=== PATIENT | female | born 1960 | race Caucasian/White ===

== ENCOUNTER 2020-07-08 12:03 | Inpatient (IN) | payer BC ==
[~2020-07-08] VITALS: Ht 170.2 cm; Wt 119.5 kg
[2020-07-08 12:52] LABS: BILIRUBIN,URINE NEGATIVE (NEG); CLARITY,URINE CLEAR; COLOR,URINE YELLOW; NITRITE,URINE NEGATIVE (NEG); PROTEIN,URINE NEGATIVE (NEG-TRACE); UROBILINOGEN,URINE 0.2 mg/dL (0.2 mg/dL)
[2020-07-08 13:01] LABS: HYALINE CASTS, URINE MANY /HPF
[2020-07-08 13:02] LABS: BACTERIA,URINE FEW /HPF (0-FEW); RBC,URINE OCC /HPF (0-2); WBC,URINE OCC /HPF (0-4)
[2020-07-08 13:03] LABS: AMORPHOUS SEDIMENT,UR PRESENT /HPF
[2020-07-08] MEDS ORDERED: fentaNYL PF VIAL 100 MCG/2 ML VIAL IV ONE (13:15)
[2020-07-08] MEDS ORDERED: IV NORMAL SALINE 1000ML BAG 1,000 ML IV ONE (13:15)
[2020-07-08] MEDS ORDERED: ONDANSETRON PF 4 MG/2 ML VIAL. IV ONE (13:15)
[2020-07-08 13:35] LABS: BASO % 0 % (0-3); EOS % 1 % (0-3); HEMATOCRIT 32.2 % (36.0-47.0); HEMOGLOBIN 11.1 g/dL (12.0-15.5); LYMPH % 15 % (24-48); MEAN CORPUSCULAR HEMOGLOBIN 31 pg (25-35); MEAN CORPUSCULAR HGB CONC 34 g/dL (31-37); MEAN CORPUSCULAR VOLUME 89 fL (79-100); MONO # 0.5 x10^3/uL (0.0-1.1); MONO % 7 % (0-9); NEUT # 5.1 x10^3/uL (1.8-7.7); NEUT % 77 % (31-73); PLATELET COUNT 177 x10^3/uL (140-400); RED BLOOD COUNT 3.62 x10^6/uL (3.50-5.40); WHITE BLOOD COUNT 6.6 x10^3/uL (4.0-11.0)
[2020-07-08 13:44] LABS: CALCIUM 9.8 mg/dL (8.5-10.1); CREATININE 1.1 mg/dL (0.6-1.0); GFR 50.5; POTASSIUM 4.4 mmol/L (3.5-5.1)
[2020-07-08] MEDS ORDERED: IOHEXOL 300 MG/ML 100ML VIAL. IV ONE (13:45)
[2020-07-08] MEDS ORDERED: CONTRAST GIVEN. MC PRN (13:45)
[2020-07-08 13:50] LABS: ALBUMIN 3.3 g/dL (3.4-5.0); ALBUMIN/GLOBULIN RATIO 0.9 (1.0-1.7); MAGNESIUM 1.5 mg/dL (1.8-2.4); TOTAL BILIRUBIN 0.7 mg/dL (0.2-1.0); TOTAL PROTEIN 6.9 g/dL (6.4-8.2)
--- NOTE | 2020-07-08 15:00 | RAD ---
EXAM: Abdomen and pelvis CT with intravenous contrast. HISTORY: Pain. TECHNIQUE: Computed tomographic images of the abdomen and pelvis were obtained following the administ ration of intravenous contrast. Multiplanar reformatting was performed. *One or more of the following individualized dose reduction techniques were utilized for this examina tion: 1. Automated exposure control. 2. Adjustment of the mA and/or kV according to patient size. 3. Use of iterative reconstruction technique. COMPARISON: None. FINDINGS: Evaluation of the lower thorax demonstrates no infiltrate, pleural effusion or pneumothorax . There is focal lingular atelectasis or scarring. No suspicious hepatic lesion is seen. There is mil d biliary ductal dilatation likely due to reservoir effect status post cholecystomy. The pancreas is unremarkable. There is a splenule adjacent to an otherwise unremarkable spleen. The adrenal glands ar e unremarkable. There is no hydronephrosis or suspicious renal lesion. There is no appendicitis. There is no bowel obstruction. There is no abnormal bowel wall thickening. The bladder is nearly empty. There are calcifications within the lower uterine segment likely due to small fibroids. There are also a few small uterine parenchyma calcifications. The aorta is normal in caliber. There is no lymphadenopathy. There is degenerative change throughout the spine. There is a heavily calcified lesion within the left lateral recess at T10-T11, likely due to a disc protrusion with slight superior extrusion. There is a similar smaller left lateral recess t o foraminal disc protrusion/extrusion at T11-T12 and there are multiple lumbar disc protrusions and a ssociated foraminal and central canal stenosis. IMPRESSION: 1. No convincing acute abdominal or pelvic finding. 2. Biliary ductal dilatation likely due to reservoir effect status post cystectomy. 3. Small calcified uterine fibroids. 4. Degenerative change involving the thoracic and lumbar spine, resulting in stenosis at multiple lev els. Electronically signed by: Debi Gibson MD (07/08/2020 2:58 PM) [facility]
[2020-07-08] MEDS ORDERED: MAGNESIUM OXIDE 400 MG TABLET PO ONE (15:30)
--- NOTE | 2020-07-08 15:39 | ED.ADGEN ---
Past Medical History Past Medical History: Constipation, GERD, Hypertension, P.U.D. Past Surgical History: , Hysterectomy, Other Additional Past Surgical Histo: KNEE Smoking Status: Former Smoker Alcohol Use: None General Adult EDM: Chief Complaint: ABDOMINAL PAIN HPI: HPI: Patient is a 60 year old female, accompanied by her , who presents emergency department with complaints of intractable upper abdominal pain that has progressively gotten worse over the last month. Patient states she has been taking Protonix that was prescribed by her primary care doctor with no improveme nt of her symptoms. Patient states her nausea is actually gotten worse. Patient states she has not been able to eat for the last 3 days or return she tries to eat she vomits and has dry heaves. Patient states that the pain is mostly in her upper abdomen but does radiate to her entire abdomen. She denies any chest pain, palpitations, dizziness, shortness of breath, wheezing, diarrhea, dysuria, hematuria, increased urinary frequency, difficulty voiding, back pain, cough, or fever. Patient states she is supposed to have a EGD on the of this month but she feels like she cannot wait any longer. Patient initially had a EGD at the end of May but was unable to attend the appointment due to receiving her second Covid immunization and having a fever the next day. She currently rates pain 10 out of 10 on the pain scale, she denies any alleviating factors. She states that the pain is constant. Review of Systems: Review of Systems: Complete ROS is negative unless otherwise noted in HPI. Current Medications: Current Medications Medications (Trade) Dose Ordered Sig/Gary Start Time Stop Time Status Last Admin Dose Admin Fentanyl Citrate (Fentanyl 2ml Vial) 50 mcg 1X ONCE 07/08/20 13:15 07/08/20 13:16 DC 07/08/20 13:33 50 MCG Info (CONTRAST GIVEN -- Rx MONITORING) 1 each PRN DAILY PRN 07/08/20 13:45 07/10/20 13:44 DC Iohexol (Omnipaque 300 Mg/ml) 75 ml 1X ONCE 07/08/20 13:45 07/08/20 13:46 DC Magnesium Oxide (Magnesium Oxide) 800 mg 1X ONCE 07/08/20 15:30 07/08/20 15:31 DC 07/08/20 16:56 800 MG Ondansetron HCl (Zofran) 4 mg 1X ONCE 07/08/20 13:15 07/08/20 13:16 DC 07/08/20 13:33 4 MG Sodium Chloride 1,000 ml @ 1,000 mls/hr 1X ONCE 07/08/20 13:15 07/08/20 14:14 DC 07/08/20 13:32 1,000 MLS/HR Allergies: Allergies: Allergies Coded Allergies Type Severity Reaction Last Updated Verified Sulfa (Sulfonamide Antibiotics) Allergy Intermediate 07/08/20 Yes Physical Exam: PE: See Above Constitutional: Well developed, well nourished, no acute distress, non-toxic appearance, obese. [] HENT: Normocephalic, atraumatic, bilateral external ears normal, nose normal. [] Eyes: PERRLA, EOMI, conjunctiva normal, no discharge. [] Neck: Normal range of motion, no stridor. [] Cardiovascular:Heart rate regular rhythm Lungs & Thorax: Respirations even and unlabored, no retractions, no respiratory distress Abdomen: soft, diffuse tenderness to palpation, no palpable mass, no pulsatile mass, no rebound tenderness, no guarding Skin: Warm, dry, no erythema, no rash. [] Extremities: No cyanosis, ROM intact, no edema. [] Neurologic: Alert and oriented X 3, normal motor, normal sensory, no focal deficits noted. [] Psychologic: Affect normal, judgement normal, mood normal. [] Current Patient Data: Labs: Laboratory Tests Test 07/08/20 12:40 07/08/20 13:23 Urine Collection Type Unknown Urine Color Yellow Urine Clarity Clear Urine pH 5.0 (<5.0-8.0) Urine Specific Mcgrath 1.015 (1.000-1.030) Urine Protein Negative mg/dL (NEG-TRACE) Urine Glucose (UA) Negative mg/dL (NEG) Urine Ketones (Stick) Negative mg/dL (NEG) Urine Blood Negative (NEG) Urine Nitrite Negative (NEG) Urine Bilirubin Negative (NEG) Urine Urobilinogen Dipstick 0.2 mg/dL (0.2 mg/dL) Urine Leukocyte Esterase Trace (NEG) Urine RBC Occ /HPF (0-2) Urine WBC Occ /HPF (0-4) Urine Squamous Epithelial Cells Few /LPF Urine Amorphous Sediment Present /HPF Urine Bacteria Few /HPF (0-FEW) Urine Hyaline Casts Many /HPF Urine Mucus Mod /LPF White Blood Count 6.6 x10^3/uL (4.0-11.0) Red Blood Count 3.62 x10^6/uL (3.50-5.40) Hemoglobin 11.1 g/dL (12.0-15.5) L Hematocrit 32.2 % (36.0-47.0) L Mean Corpuscular Volume 89 fL (79-100) Mean Corpuscular Hemoglobin 31 pg (25-35) Mean Corpuscular Hemoglobin Concent 34 g/dL (31-37) Red Cell Distribution Width 11.0 % (11.5-14.5) L Platelet Count 177 x10^3/uL (140-400) Neutrophils (%) (Auto) 77 % (31-73) H Lymphocytes (%) (Auto) 15 % (24-48) L Monocytes (%) (Auto) 7 % (0-9) Eosinophils (%) (Auto) 1 % (0-3) Basophils (%) (Auto) 0 % (0-3) Neutrophils # (Auto) 5.1 x10^3/uL (1.8-7.7) Lymphocytes # (Auto) 1.0 x10^3/uL (1.0-4.8) Monocytes # (Auto) 0.5 x10^3/uL (0.0-1.1) Eosinophils # (Auto) 0.0 x10^3/uL (0.0-0.7) Basophils # (Auto) 0.0 x10^3/uL (0.0-0.2) Sodium Level 141 mmol/L (136-145) Potassium Level 4.4 mmol/L (3.5-5.1) Chloride Level 103 mmol/L (98-107) Carbon Dioxide Level 27 mmol/L (21-32) Anion Gap 11 (6-14) Blood Urea Nitrogen 45 mg/dL (7-20) H Creatinine 1.1 mg/dL (0.6-1.0) H Estimated GFR (Cockcroft-Gault) 50.5 BUN/Creatinine Ratio 41 (6-20) H Glucose Level 119 mg/dL (70-99) H Calcium Level 9.8 mg/dL (8.5-10.1) Magnesium Level 1.5 mg/dL (1.8-2.4) L Total Bilirubin 0.7 mg/dL (0.2-1.0) Aspartate Amino Transferase (AST) 25 U/L (15-37) Alanine Aminotransferase (ALT) 54 U/L (14-59) Alkaline Phosphatase 74 U/L (46-116) Total Protein 6.9 g/dL (6.4-8.2) Albumin 3.3 g/dL (3.4-5.0) L Albumin/Globulin Ratio 0.9 (1.0-1.7) L Lipase 109 U/L (73-393) Vitamin B12 Level 644 pg/mL (247-911) Thyroid Stimulating Hormone (TSH) < 0.007 uIU/mL (0.358-3.74) L Laboratory Tests 07/08/20 13:23 Laboratory Tests 07/08/20 13:23 Microbiology 07/08/20 Urine Culture - Final, Complete Vital Signs: Vital Signs Date Time Temp Pulse Resp B/P (MAP) Pulse Ox O2 Delivery O2 Flow Rate FiO2 07/08/20 15:34 116 22 128/65 (86) 97 Room Air 07/08/20 12:35 98.3 98.3 EKG: EKG: [] Heart Score: C/O Chest Pain: No Risk Scores: Score 0 - 3: 2.5% MACE over next 6 weeks - Discharge Home Score 4 - 6: 20.3% MACE over next 6 weeks - Admit for Clinical Observation Score 7 - 10: 72.7% MACE over next 6 weeks - Early Invasive Strategies Radiology/Procedures: Radiology/Procedures: PROCEDURE: CT ABD PELV W/ IV CONTRST ONLY EXAM: Abdomen and pelvis CT with intravenous contrast. HISTORY: Pain. TECHNIQUE: Computed tomographic images of the abdomen and pelvis were obtained following the administration of intravenous contrast. Multiplanar reformatting was performed. *One or more of the following individualized dose reduction techniques were utilized for this examination: 1. Automated exposure control. 2. Adjustment of the mA and/or kV according to patient size. 3. Use of iterative reconstruction technique. COMPARISON: None. FINDINGS: Evaluation of the lower thorax demonstrates no infiltrate, pleural effusion or pneumothorax. There is focal lingular atelectasis or scarring. No suspicious hepatic lesion is seen. There is mild biliary ductal dilatation likely due to reservoir effect status post cholecystomy. The pancreas is unremarkable. There is a splenule adjacent to an otherwise unremarkable spleen. The adrenal glands are unremarkable. There is no hydronephrosis or suspicious renal lesion. There is no appendicitis. There is no bowel obstruction. There is no abnormal bowel wall thickening. The bladder is nearly empty. There are calcifications within the lower uterine segment likely due to small fibroids. There are also a few small uterine parenchyma calcifications. The aorta is normal in caliber. There is no lymphadenopathy. There is degenerative change throughout the spine. There is a heavily calcified lesion within the left lateral recess at T10-T11, likely due to a disc protrusion with slight superior extrusion. There is a similar smaller left lateral recess to foraminal disc protrusion/extrusion at T11-T12 and there are multiple lumbar disc protrusions and associated foraminal and central canal stenosis. IMPRESSION: 1. No convincing acute abdominal or pelvic finding. 2. Biliary ductal dilatation likely due to reservoir effect status post cystectomy. 3. Small calcified uterine fibroids. 4. Degenerative change involving the thoracic and lumbar spine, resulting in stenosis at multiple levels. Electronically signed by: Debi Gibson MD (07/08/2020 2:58 PM) [facility] [] Course & Med Decision Making: Course & Med Decision Making Pertinent Labs and Imaging studies reviewed. (See chart for details) [id number] with Dr. Alvarenga who is the admitting physician, and care was assumed following discussion of patient. Will admit patient for intractable abdominal pain, and MEGHAN Patient's vital signs stable. Patient remains afebrile, appears nontoxic, respirations even and unlabored. Patient will be admitted to the medical surgical floor. Patient's case and plan of care also discussed with Dr. Villagomez [] /////////////// Initial evaluation, work-up and disposition of patient discussed with daytime physician. I took over as nighttime physician and reviewed pending admission status of patient with DIRECTOR OF LABOR RELATIONS. I agree with the findings, plan of care, and disposition as documented. Electronically signed, DO Lashanda Hardy Disclaimer: Lashanda Disclaimer: This electronic medical record was generated, in whole or in part, using a voice recognition dictation system. Departure Departure Impression: Primary Impression: Intractable nausea and vomiting Additional Impression: MEGHAN (acute kidney injury) Disposition: 09 ADMITTED INPATIENT Admitting Physician: TODD JamilColette) Condition: STABLE Referrals: JOSE BACA DO (PCP) Scripts Propranolol Hcl (INDERAL LA) 60 Mg Cap.sa.24h 60 MG PO DAILY for hyperthyroidism for 30 Days, #30 CAP.SR Prov: JAVY FOSS MD 07/14/20 Methimazole (METHIMAZOLE) 10 Mg Tablet 10 MG PO Q8HRS for hyperthyroidism for 30 Days, #90 TAB Prov: JAVY FOSS MD 07/14/20 Problem Qualifiers VICK ROBB APRN July 08, 2020 15:39 KEVIN HIGH DO July 14, 2020 23:50
[2020-07-08] MEDS ORDERED: PROCHLORPERAZINE 10 MG/2 ML VIAL. IV ONE (15:45)
[2020-07-08] MEDS ORDERED: ACETAMINOPHEN 650 MG SUPP.RECT. PR PRN (16:00)
[2020-07-08] MEDS ORDERED: diphenhydrAMINE 50 MG/ML VIAL IVP PRN (16:00)
[2020-07-08] MEDS ORDERED: ONDANSETRON PF 4 MG/2 ML VIAL. IV PRN (16:00)
[2020-07-08] MEDS ORDERED: fentaNYL PF VIAL 100 MCG/2 ML VIAL IVP PRN (16:15)
[2020-07-08] MEDS ORDERED: PANTOPRAZOLE IV PUSH 40 MG VIAL. IVP ONE (16:15)
[2020-07-08] MEDS ORDERED: MAGNESIUM SULFATE 4GM 100 ML IV ONE (16:30)
[2020-07-08] MEDS ORDERED: IV DEXTROSE 5 %-0.45 % NACL 1,000 ML IV ONE (16:30)
--- NOTE | 2020-07-08 16:43 | PDOC1 ---
History and Physical Date of Admission Date of Admission DATE: 07/08/20 TIME: 15:58 Identification/Chief Complaint Chief Complaint Intractable abdominal pain Source Source: Chart review, Patient History of Present Illness History of Present Illness Ms Pedersen is a 60yo F w/ PMHx Constipation, GERD, Hypertension, hypothyroidism, and morbid obesity is to the ED today accompanied by her via private vehicle with complaint of intractable abdominal progressive over the last month. She has been seen outpatient and has EGD scheduled on 07/14/2020. She been taking Protonix daily with no improvement in her symptoms and this is actually progressed now she has daily nausea and has not been able to hold down food for the last 3 days attempted to eat pears and cereal 3 days ago and 2 days ago respectively. Was unable to eat any food today had significant dry heaving with no significant vomitus this morning which prompted her to come to the ED. Pain is mainly epigastric but does radiate into the rest of her abdomen. She has not noticed any foods that worsen it does avoid spicy foods. She initially had her EGD scheduled on 06/27/2020 but it was delayed due to a fever for 24 hours after her second COVID-19 vaccine. No chest pain or shortness of breath. No history of cardiac issues. She has been compliant with her medications though she does take her levothyroxine at the same time as another a.m. medications. She has had 2 colonoscopies in her lifetime most recently was in 2019 which had no abnormalities noted. CT abdomen pelvis with no acute abdominal or pelvic finding some calcified uterine fibroids thoracic and lumbar spinal stenosis multiple levels. Labs with WBC 6.6, Hb 11.1, platelets 177, NA 141, K4.4, BUN 45, CR 1.1, glucose 119, calcium 9.8, magnesium 1.5, albumin 3.3, lipase 109, LFTs otherwise within normal laboratory limits urinalysis with hyaline casts trace leukocyte esterase negative for nitrites and blood. Admitted for further treatment Past Medical History Cardiovascular: HTN GI: GERD Endocrine: Hypothyroidism Past Surgical History Past Surgical History: Arthroscopy (Left knee), Cholecystectomy, Family History Family History: High Cholestrol, Hypertension Social History Smoke: Quit (12/2019) ALCOHOL: none Drugs: None Current Medications Current Medications Current Medications Sodium Chloride 1,000 ml @ 1,000 mls/hr 1X ONCE IV Last administered on 07/08/20at 13:32; Start 07/08/20 at 13:15; Stop 07/08/20 at 14:14; Status DC Ondansetron HCl (Zofran) 4 mg 1X ONCE IV Last administered on 07/08/20at 13:33; Start 07/08/20 at 13:15; Stop 07/08/20 at 13:16; Status DC Fentanyl Citrate (Fentanyl 2ml Vial) 50 mcg 1X ONCE IV Last administered on 07/08/20at 13:33; Start 07/08/20 at 13:15; Stop 07/08/20 at 13:16; Status DC Iohexol (Omnipaque 300 Mg/ml) 75 ml 1X ONCE IV ; Start 07/08/20 at 13:45; Stop 07/08/20 at 13:46; Status DC Info (CONTRAST GIVEN -- Rx MONITORING) 1 each PRN DAILY PRN MC SEE COMMENTS; Start 07/08/20 at 13:45; Stop 07/10/20 at 13:44 Magnesium Oxide (Magnesium Oxide) 800 mg 1X ONCE PO ; Start 07/08/20 at 15:30; Stop 07/08/20 at 15:31; Status DC Prochlorperazine Edisylate (Compazine) 10 mg 1X ONCE IV ; Start 07/08/20 at 15:45; Stop 07/08/20 at 15:46; Status DC Allergies Allergies: Coded Allergies: Sulfa (Sulfonamide Antibiotics) (Verified Allergy, Intermediate, 07/08/20) codeine (Verified Allergy, Unknown, 07/08/20) ROS General: YES: Fatigue, Malaise; No: Chills, Night Sweats, Appetite, Other PSYCHOLOGICAL ROS: No: Anxiety, Behavioral Disorder, Concentration difficultie, Decreased libido, Depression, Disorientation, Hallucinations, Hostility, Irritab lity, Memory difficulties, Mood Swings, Obsessive thoughts, Physical abuse, Sexual abuse, Sleep disturbances, Suicidal ideation, Other Eyes: No Blurry vision, No Decreased vision, No Double vision, No Dry eyes, No Excessive tearing, No Eye Pain, No Itchy Eyes, No Loss of vision, No Photophobia, No Scotomata, No Uses contacts, No Uses glasses, No Other HEENT: No: Heacaches, Visual Changes, Hearing change, Nasal congestion, Nasal discharge, Oral lesions, Sinus pain, Sore Throat, Epistaxis, Sneezing, Snoring, Tinnitus, Vertigo, Vocal changes, Other ALLERGY AND IMMUNOLOGY: No: Hives, Insect Bite Sensitivity, Itchy/Watery Eyes, Nasal Congestion, Post Nasal Drip, Seasonal Allergies, Other Hematological and Lymphatic: No: Bleeding Problems, Blood Clots, Blood Transfusions, Brusing, Night Sweats, Pallor, Swollen Lymph Nodes, Other ENDOCRINE: No: Breast Changes, Galactorrhea, Hair Pattern Changes, Hot Flashes, Malaise/lethargy, Mood Swings, Palpitations, Polydipsia/polyuria, Skin Changes, Temperature Intolerance, Unexpected Weight Changes, Other Breast: No New/Changing Breast Lumps, No Nipple changes, No Nipple discharge, No Other Respiratory: No: Cough, Hemoptysis, Orthopnea, Pleuritic Pain, Shortness of breath, SOB with excertion, Sputum Changes, Stridor, Tachypnea, Wheezing, Other Cardiovascular: No Chest Pain, No Palpitations, No Orthopnea, No Paroxysmal Noc. Dyspnea, No Edema, No Lt Headedness, No Other Gastrointestinal: Yes Nausea, Yes Vomiting, Yes Abdominal Pain; No Diarrhea, No Constipation, No Melena, No Hematochezia, No Other Genitourinary: No Dysuria, No Frequency, No Incontinence, No Hematuria, No Retention, No Discharge, No Urgency, No Pain, No Flank Pain, No Other, No , No , No , No , No , No , No Musculoskeletal: No Gait Disturbance, No Joint Pain, No Joint Stiffness, No Joint Swelling, No Muscle Pain, No Muscular Weakness, No Pain In:, No Swelling In:, No Other Neurological: No Behavorial Changes, No Bowel/Bladder ControlChng, No Co nfusion, No Dizziness, No Gait Disturbance, No Headaches, No Impaired Coord/balance, No Memory Loss, No Numbness/Tingling, No Seizures, No Speech Problems, No Tremors, No Visual Changes, No Weakness, No Other Skin: No Dry Skin, No Eczema, No Hair Changes, No Lumps, No Mole Changes, No Mottling, No Nail Changes, No Pruritus, No Rash, No Skin Lesion Changes, No Other, No Acne Physical Exam General: Alert, Oriented X3, Cooperative, moderate distress HEENT: Atraumatic, PERRLA, EOMI, Mucous membr. moist/pink Lungs: Clear to auscultation, Normal air movement Heart: S1S2, RRR, no thrills, no rubs, no gallops, no murmurs Abdomen: Normal bowel sounds, Soft, No hepatosplenomegaly, No masses, Other (Epigastric tenderness) Rectal Exam: not examined Extremities: No clubbing, No cyanosis, No edema, Normal pulses, No tenderness/swelling Skin: No rashes, No breakdown, No significant lesion Neuro: Normal gait, Normal speech, Strength at 5/5 X4 ext, Normal tone, Sensation intact, Cranial nerves 3-12 NL, Reflexes 2+ Psych/Mental Status: Mental status NL, Mood NL Vitals Vitals Vital Signs Date Time Temp Pulse Resp B/P (MAP) Pulse Ox O2 Delivery O2 Flow Rate FiO2 07/08/20 14:34 122 124/55 (78) Room Air 07/08/20 14:03 19 96 07/08/20 12:35 98.3 98.3 Labs Labs Laboratory Tests Test 07/08/20 12:40 07/08/20 13:23 Urine Collection Type Unknown Urine Color Yellow Urine Clarity Clear Urine pH 5.0 (<5.0-8.0) Urine Specific [place] 1.015 (1.000-1.030) Urine Protein Negative mg/dL (NEG-TRACE) Urine Glucose (UA) Negative mg/dL (NEG) Urine Ketones (Stick) Negative mg/dL (NEG) Urine Blood Negative (NEG) Urine Nitrite Negative (NEG) Urine Bilirubin Negative (NEG) Urine Urobilinogen Dipstick 0.2 mg/dL (0.2 mg/dL) Urine Leukocyte Esterase Trace (NEG) Urine RBC Occ /HPF (0-2) Urine WBC Occ /HPF (0-4) Urine Squamous Epithelial Cells Few /LPF Urine Amorphous Sediment Present /HPF Urine Bacteria Few /HPF (0-FEW) Urine Hyaline Casts Many /HPF Urine Mucus Mod /LPF White Blood Count 6.6 x10^3/uL (4.0-11.0) Red Blood Count 3.62 x10^6/uL (3.50-5.40) Hemoglobin 11.1 g/dL (12.0-15.5) Hematocrit 32.2 % (36.0-47.0) Mean Corpuscular Volume 89 fL (79-100) Mean Corpuscular Hemoglobin 31 pg (25-35) Mean Corpuscular Hemoglobin Concent 34 g/dL (31-37) Red Cell Distribution Width 11.0 % (11.5-14.5) Platelet Count 177 x10^3/uL (140-400) Neutrophils (%) (Auto) 77 % (31-73) Lymphocytes (%) (Auto) 15 % (24-48) Monocytes (%) (Auto) 7 % (0-9) Eosinophils (%) (Auto) 1 % (0-3) Basophils (%) (Auto) 0 % (0-3) Neutrophils # (Auto) 5.1 x10^3/uL (1.8-7.7) Lymphocytes # (Auto) 1.0 x10^3/uL (1.0-4.8) Monocytes # (Auto) 0.5 x10^3/uL (0.0-1.1) Eosinophils # (Auto) 0.0 x10^3/uL (0.0-0.7) Basophils # (Auto) 0.0 x10^3/uL (0.0-0.2) Sodium Level 141 mmol/L (136-145) Potassium Level 4.4 mmol/L (3.5-5.1) Chloride Level 103 mmol/L (98-107) Carbon Dioxide Level 27 mmol/L (21-32) Anion Gap 11 (6-14) Blood Urea Nitrogen 45 mg/dL (7-20) Creatinine 1.1 mg/dL (0.6-1.0) Estimated GFR (Cockcroft-Gault) 50.5 BUN/Creatinine Ratio 41 (6-20) Glucose Level 119 mg/dL (70-99) Calcium Level 9.8 mg/dL (8.5-10.1) Magnesium Level 1.5 mg/dL (1.8-2.4) Total Bilirubin 0.7 mg/dL (0.2-1.0) Aspartate Amino Transf (AST/SGOT) 25 U/L (15-37) Alanine Aminotransferase (ALT/SGPT) 54 U/L (14-59) Alkaline Phosphatase 74 U/L (46-116) Total Protein 6.9 g/dL (6.4-8.2) Albumin 3.3 g/dL (3.4-5.0) Albumin/Globulin Ratio 0.9 (1.0-1.7) Lipase 109 U/L (73-393) Laboratory Tests Test 07/08/20 12:40 07/08/20 13:23 Urine Collection Type Unknown Urine Color Yellow Urine Clarity Clear Urine pH 5.0 (<5.0-8.0) Urine Specific [place] 1.015 (1.000-1.030) Urine Protein Negative mg/dL (NEG-TRACE) Urine Glucose (UA) Negative mg/dL (NEG) Urine Ketones (Stick) Negative mg/dL (NEG) Urine Blood Negative (NEG) Urine Nitrite Negative (NEG) Urine Bilirubin Negative (NEG) Urine Urobilinogen Dipstick 0.2 mg/dL (0.2 mg/dL) Urine Leukocyte Esterase Trace (NEG) Urine RBC Occ /HPF (0-2) Urine WBC Occ /HPF (0-4) Urine Squamous Epithelial Cells Few /LPF Urine Amorphous Sediment Present /HPF Urine Bacteria Few /HPF (0-FEW) Urine Hyaline Casts Many /HPF Urine Mucus Mod /LPF White Blood Count 6.6 x10^3/uL (4.0-11.0) Red Blood Count 3.62 x10^6/uL (3.50-5.40) Hemoglobin 11.1 g/dL (12.0-15.5) Hematocrit 32.2 % (36.0-47.0) Mean Corpuscular Volume 89 fL (79-100) Mean Corpuscular Hemoglobin 31 pg (25-35) Mean Corpuscular Hemoglobin Concent 34 g/dL (31-37) Red Cell Distribution Width 11.0 % (11.5-14.5) Platelet Count 177 x10^3/uL (140-400) Neutrophils (%) (Auto) 77 % (31-73) Lymphocytes (%) (Auto) 15 % (24-48) Monocytes (%) (Auto) 7 % (0-9) Eosinophils (%) (Auto) 1 % (0-3) Basophils (%) (Auto) 0 % (0-3) Neutrophils # (Auto) 5.1 x10^3/uL (1.8-7.7) Lymphocytes # (Auto) 1.0 x10^3/uL (1.0-4.8) Monocytes # (Auto) 0.5 x10^3/uL (0.0-1.1) Eosinophils # (Auto) 0.0 x10^3/uL (0.0-0.7) Basophils # (Auto) 0.0 x10^3/uL (0.0-0.2) Sodium Level 141 mmol/L (136-145) Potassium Level 4.4 mmol/L (3.5-5.1) Chloride Level 103 mmol/L (98-107) Carbon Dioxide Level 27 mmol/L (21-32) Anion Gap 11 (6-14) Blood Urea Nitrogen 45 mg/dL (7-20) Creatinine 1.1 mg/dL (0.6-1.0) Estimated GFR (Cockcroft-Gault) 50.5 BUN/Creatinine Ratio 41 (6-20) Glucose Level 119 mg/dL (70-99) Calcium Level 9.8 mg/dL (8.5-10.1) Magnesium Level 1.5 mg/dL (1.8-2.4) Total Bilirubin 0.7 mg/dL (0.2-1.0) Aspartate Amino Transf (AST/SGOT) 25 U/L (15-37) Alanine Aminotransferase (ALT/SGPT) 54 U/L (14-59) Alkaline Phosphatase 74 U/L (46-116) Total Protein 6.9 g/dL (6.4-8.2) Albumin 3.3 g/dL (3.4-5.0) Albumin/Globulin Ratio 0.9 (1.0-1.7) Lipase 109 U/L (73-393) Images Images CT abdomen/pelvis: Evaluation of the lower thorax demonstrates no infiltrate, pleural effusion or pneumothorax. There is focal lingular atelectasis or scarring. No suspicious hepatic lesion is seen. There is mild biliary ductal dilatation likely due to reservoir effect status post cholecystomy. The pancreas is unremarkable. There is a splenule adjacent to an otherwise unremarkable spleen. The adrenal glands are unremarkable. There is no hydronephrosis or suspicious renal lesion. There is no appendicitis. There is no bowel obstruction. There is no abnormal bowel wall thickening. The bladder is nearly empty. There are calcifications wi thin the lower uterine segment likely due to small fibroids. There are also a few small uterine parenchyma calcifications. The aorta is normal in caliber. There is no lymphadenopathy. There is degenerative change throughout the spine. There is a heavily calcified lesion within the left lateral recess at T10-T11, likely due to a disc protrusion with slight superior extrusion. There is a similar smaller left lateral recess to foraminal disc protrusion/extrusion at T11-T12 and there are multiple lumbar disc protrusions and associated foraminal and central canal stenosis. IMPRESSION: 1. No convincing acute abdominal or pelvic finding. 2. Biliary ductal dilatation likely due to reservoir effect status post cystectomy. 3. Small calcified uterine fibroids. 4. Degenerative change involving the thoracic and lumbar spine, resulting in stenosis at multiple levels. VTE Prophylaxis Ordered VTE Prophylaxis Devices: Yes VTE Pharmacological Prophylaxi: No Assessment/Plan Assessment/Plan A/P: Intractable abdominal pain - likely related to as of yet undiagnosed PUD. Will keep NPO. IV fentanyl has been effective, will continue. IV protonix as well Nausea and vomiting - likely related to above. No history of gastroparesis. Will keep NPO except for sips with meds. IV zofran MEGHAN - appears to be vasomotor nephropathy likely from poor PO intake recently. With BUN/Cr ratio I am concerned for possible PUD with upper GI bleed. GI consulted. IV fluids ordered Hypomagnesemia - likely due to HCTZ therapy with PPI administration. Will hold off on this Hypothyroidism - on 88mcg levothyroxine. Counseled on taking this med on empty stomach without other meds HTN - hold HCTZ. PRN hydralazine FEN - NPO PPX - IV protonix, SCDs FULL CODE Dispo - inpatient Justifications for Admission Other Justification ROMULO CONTI MD July 08, 2020 16:43
[2020-07-08 19:00] VITALS: BP 139/81
--- NOTE | 2020-07-08 19:00 | NUR ---
Pt. arrive on unit at 1935 by wheelchair. Pt. does not complain of any pain at this time. Call light is within reach with bed in lowest setting. Will continue to monitor.
[2020-07-08] MEDS ORDERED: PROCHLORPERAZINE 10 MG/2 ML VIAL. IV PRN (20:30)
[2020-07-08 23:00] VITALS: BP 106/57
[2020-07-09] VITALS (7 sets, daily range): BP systolic 81–150; BP diastolic 46–79
[2020-07-09] MEDS: fentaNYL PF VIAL 100 MCG/2 ML VIAL IVP PRN ×3 (03:44→10:17)
[2020-07-09] MEDS ORDERED: PANT40TA77 PO (05:25)
[2020-07-09] MEDS ORDERED: LEVO88TA70 PO (05:25)
[2020-07-09 07:55] LABS: CALCIUM 9.4 mg/dL (8.5-10.1); CREATININE 1.2 mg/dL (0.6-1.0); GFR 45.7; MAGNESIUM 2.7 mg/dL (1.8-2.4); POTASSIUM 4.2 mmol/L (3.5-5.1)
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
--- NOTE | 2020-07-09 09:51 | NUR ---
SW following. Discussed with RN, pt from home with , room air, NPO. GI following. Possible EGD per RN. RN advised no SW needs at this time. SW will continue to follow.
[2020-07-09] MEDS ORDERED: PANTOPRAZOLE IV PUSH 40 MG VIAL. IVP SCH (10:45)
[2020-07-09] MEDS ORDERED: PROPOFOL 10 MG/ML (20ML) VIAL. IV ONE ×2 (11:24→12:25)
[2020-07-09] MEDS ORDERED: LIDOCAINE 2% PF 5 ML VIAL. ONE (11:24)
[2020-07-09] MEDS ORDERED: IV RINGERS,LACTATED 1000ML 1,000 ML IV SCH (12:00)
[2020-07-09] MEDS ORDERED: OMEG-117 PO (12:02)
[2020-07-09] MEDS ORDERED: DOCU100C28 PO (12:02)
[2020-07-09] MEDS ORDERED: BENA40TA3 PO (12:02)
[2020-07-09] MEDS ORDERED: CRAN500T3 PO (12:02)
[2020-07-09] MEDS ORDERED: FERR-36 PO (12:02)
[2020-07-09] MEDS ORDERED: HYDR12.58 PO (12:02)
[2020-07-09] MEDS ORDERED: ZINC50TA39 PO (12:02)
[2020-07-09] MEDS ORDERED: MULT-245 PO (12:02)
--- NOTE | 2020-07-09 12:54 | PDOC4 ---
PROCEDURE Procedure EGD- for n/v anesthesia with propofol E- mild distal esophagitis o/w negative- bx ( very strong gag reflex ) G- mild antral gastritis- bx D- normal - bx PPI Zofran trial of carafate TISHA NGUYEN MD July 09, 2020 12:54
--- NOTE | 2020-07-09 14:27 | PDOC ---
[facility] [facility] PROGRESS NOTE Date of Service DOS: DATE: 07/09/20 TIME: 14:24 Chief Complaint Chief Complaint A/P: Intractable abdominal pain - likely related to as of yet undiagnosed PUD. Will keep NPO. IV fentanyl has been effective, will continue. IV protonix as well Nausea and vomiting - likely related to above. No history of gastroparesis. Will keep NPO except for sips with meds. IV zofran MEGHAN - appears to be vasomotor nephropathy likely from poor PO intake recently. With BUN/Cr ratio I am concerned for possible PUD with upper GI bleed. GI consulted. IV fluids ordered Hypomagnesemia - likely due to HCTZ therapy with PPI administration. Will hold off on this Hypothyroidism - on 88mcg levothyroxine. Counseled on taking this med on empty stomach without other meds, but is actually hyperthyroid, will check T4, T3 HTN - hold HCTZ. PRN hydralazine FEN - NPO PPX - IV protonix, SCDs FULL CODE Dispo - inpatient History of Present Illness History of Present Illness Ms Pedersen is a 60yo F w/ PMHx Constipation, GERD, Hypertension, hypothyroidism, and morbid obesity is to the ED today accompanied by her via private vehicle with complaint of intractable abdominal progressive over the last month. She has been seen outpatient and has EGD scheduled on 07/14/2020. She been taking Protonix daily with no improvement in her symptoms and this is actually progressed now she has daily nausea and has not been able to hold down food for the last 3 days attempted to eat pears and cereal 3 days ago and 2 days ago respectively. Was unable to eat any food today had significant dry heaving with no significant vomitus this morning which prompted her to come to the ED. Pain is mainly epigastric but does radiate into the rest of her abdomen. She has not noticed any foods that worsen it does avoid spicy foods. She initially had her EGD scheduled on 06/27/2020 but it was delayed due to a fever for 24 hours after her second COVID-19 vaccine. No chest pain or shortness of breath. No history of cardiac issues. She has been compliant with her medications though she does take her levothyroxine at the same time as another a.m. medications. She has had 2 colonoscopies in her lifetime most recently was in 2019 which had no abnormalities noted. CT abdomen pelvis with no acute abdominal or pelvic finding some calcified uterine fibroids thoracic and lumbar spinal stenosis multiple levels. Labs with WBC 6.6, Hb 11.1, platelets 177, NA 141, K4.4, BUN 45, CR 1.1, glucose 119, calcium 9.8, magnesium 1.5, albumin 3.3, lipase 109, LFTs otherwise within normal laboratory limits urinalysis with hyaline casts trace leukocyte esterase negative for nitrites and blood. Admitted for further treatment. Pain a little better. To EGD with mild gastritis and mild esophagitis today. CR up to 1.2, mag 2.7, TSH undetectable. Vitals/I&O Vitals/I&O: Vital Signs Date Time Temp Pulse Resp B/P (MAP) Pulse Ox O2 Delivery O2 Flow Rate FiO2 07/09/20 13:23 105 20 154/68 97 Room Air 07/09/20 12:53 98.9 4 98.9 I & O 07/08/20 07/08/20 07/09/20 15:00 23:00 07:00 Intake Total 1000 ml Balance 1000 ml Physical Exam General: Alert, Oriented X3, Cooperative, moderate distress Abdomen: Normal bowel sounds, Soft, No hepatosplenomegaly, No masses, Other (Epigastric tenderness) Extremities: No clubbing, No cyanosis, No edema, Normal pulses, No tenderness/swelling Skin: No rashes, No breakdown, No significant lesion Labs Labs: Laboratory Tests Test 07/09/20 05:45 07/09/20 10:35 Sodium Level 143 mmol/L (136-145) Potassium Level 4.2 mmol/L (3.5-5.1) Chloride Level 106 mmol/L (98-107) Carbon Dioxide Level 28 mmol/L (21-32) Anion Gap 9 (6-14) Blood Urea Nitrogen 51 mg/dL (7-20) Creatinine 1.2 mg/dL (0.6-1.0) Estimated GFR (Cockcroft-Gault) 45.7 Glucose Level 107 mg/dL (70-99) Calcium Level 9.4 mg/dL (8.5-10.1) Magnesium Level 2.7 mg/dL (1.8-2.4) Iron Level 80 ug/dL (50-170) Total Iron Binding Capacity 206 ug/dL (250-450) Iron Saturation 39 % (15-34) SARS-CoV-2 RNA (VILMA) Negative (Negative) SARS-CoV-2 Antigen (Rapid) Negative (NEGATIVE) Assessment and Plan Assessmemt and Plan Problems Medical Problems: (1) MEGHAN (acute kidney injury) Status: Acute Comment Review of Relevant I have reviewed the following items garbiele (where applicable) has been applied. Medications: Current Medications Medications (Trade) Dose Ordered Sig/Gary Route PRN Reason Start Time Stop Time Status Last Admin Dose Admin Magnesium Oxide (Magnesium Oxide) 800 mg 1X ONCE PO 07/08/20 15:30 07/08/20 15:31 DC 07/08/20 16:56 Prochlorperazine Edisylate (Compazine) 10 mg 1X ONCE IV 07/08/20 15:45 07/08/20 15:46 DC 07/08/20 16:57 Magnesium Sulfate 100 ml @ 25 mls/hr 1X ONCE IV 07/08/20 16:30 07/08/20 20:29 DC 07/08/20 17:15 Pantoprazole Sodium (PROTONIX VIAL for IV PUSH) 40 mg 1X ONCE IVP 07/08/20 16:15 07/08/20 16:20 DC 07/08/20 16:57 Dextrose/Sodium Chloride 1,000 ml @ 75 mls/hr 1X ONCE IV 07/08/20 16:30 07/09/20 05:49 DC 07/08/20 22:07 Fentanyl Citrate (Fentanyl 2ml Vial) 25 mcg PRN Q2HRS PRN IVP SEVERE PAIN 7-10 07/08/20 20:30 07/09/20 10:17 Ringer's Solution 1,000 ml @ 30 mls/hr Q24H IV 07/09/20 12:00 07/09/20 11:58 Justifications for Admission Abdominal Pain Indications Is patient in severe pain?: Yes Justification for admission: Patient has severe pain that requires (parenteral analgesic-please state analgesics and route) at least every 4 hours necessitating inpatient level of care. Is NPO status required?: Yes Justification for admission: Patient may require to be NPO for greater 24hours making it medically necessary to manage patient as inpatient. Other Justification ROMULO CONTI MD July 09, 2020 14:27
[2020-07-09] MEDS: SUCRALFATE 1 GM TABLET. PO SCH ×2 (14:32→20:12)
[2020-07-09] MEDS: ONDANSETRON PF 4 MG/2 ML VIAL. IV PRN ×2 (15:58→21:41)
[2020-07-09] MEDS ORDERED: fentaNYL PF VIAL 100 MCG/2 ML VIAL IVP ONE (16:30)
--- NOTE | 2020-07-09 16:31 | RAD ---
Ultrasound thyroid Indication: Hyperthyroidism Technique: Real-time grayscale and color Doppler imaging of the thyroid gland was performed per gaudencio col. Comparison: None Findings: The right thyroid lobe measures: 6.2 x 2.4 x 1.9 cm, heterogeneous echotexture The left thyroid lobe measures: 4.6 x 2.2 x 1.6 cm, heterogeneous echotexture The isthmus measures: 0.3 cm, heterogeneous echotexture. Estimated total number of nodules >/= 1cm: 1 Number of spongiform nodules >/= 2cm not described below (TR1): 0 Nodule #1: Maximum size: 1.2 cm Location: Mid and lower pole right thyroid lobe Composition: Solid or almost completely solid (2) Echogenicity: Hyperechoic or isoechoic (1 point) Shape: [id number] (0 points) Margins: Ill-defined (0 points) Echogenic foci: None or large comet-tail artifacts (0 points) ACR TI-RADS total points: 3. ACR TI-RADS risk category: TR3 (3 points) - Mildly suspicious. FNA if ?2.5 cm. Follow if ?1.5 cm. Benign-appearing left neck lymph nodes with fatty hilum, measures up to 4 mm in short axis. IMPRESSION: Heterogeneous thyroid gland parenchyma with a 1.2 cm right thyroid nodule (TR3). No follow-up or fine needle aspiration is required. Electronically signed by: Marino Gomez MD (07/09/2020 4:29 PM) [id number]
[2020-07-09] MEDS: HYDROmorphone 2 MG/ML VIAL IVP PRN (20:13)
[2020-07-10 03:00] VITALS: BP 122/53
[2020-07-10] MEDS: PANTOPRAZOLE 40 MG TABLET.DR. PO SCH (06:16)
[2020-07-10 07:00] VITALS: BP 109/47
[2020-07-10] MEDS: ONDANSETRON PF 4 MG/2 ML VIAL. IV PRN ×2 (07:46→18:57)
[2020-07-10] MEDS: SUCRALFATE 1 GM TABLET. PO SCH ×2 (07:46→20:32)
[2020-07-10] MEDS: HYDROmorphone 2 MG/ML VIAL IVP PRN ×2 (07:51→18:56)
[2020-07-10] MEDS ORDERED: METOCLOPRAMIDE HCL 10 MG/2 ML VIAL. IVP PRN (08:45)
[2020-07-10] MEDS: METOCLOPRAMIDE HCL 10 MG/2 ML VIAL. IVP PRN (08:49)
[2020-07-10] MEDS ORDERED: methylPREDNISolone SOD SUCC PF 125 MG/2 ML VIAL. IV ONE (09:00)
[2020-07-10] MEDS: PROPRANOLOL ER 60 MG CAP.SA.24H. PO SCH (09:48)
--- NOTE | 2020-07-10 10:03 | PDOC ---
Date of Service: DATE: 07/10/20 TIME: 09:54 Subjective: Subjective: Tolerating liquids last night, had to eat them very slowly this morning (mimi, broth) and then vomited ~30 min later. Objective: Objective: D/w nurse - concern for thyroid storm, given IV steroids, also PRN Reglan. Vital Signs: Vital Signs Date Time Temp Pulse Resp B/P (MAP) Pulse Ox O2 Delivery O2 Flow Rate FiO2 07/10/20 09:48 100 109/47 07/10/20 07:43 Room Air 07/10/20 07:00 98.5 19 92 98.5 07/09/20 12:53 4 Labs: Laboratory Tests Test 07/09/20 10:35 SARS-CoV-2 RNA (VILMA) Negative SARS-CoV-2 Antigen (Rapid) Negative Imaging: EGD 07/09 E- mild distal esophagitis o/w negative- bx ( very strong gag reflex ) G- mild antral gastritis- bx D- normal - bx PPI Zofran trial of carafate Thyroid US 07/09 IMPRESSION: Heterogeneous thyroid gland parenchyma with a 1.2 cm right thyroid nodule (TR3). No follow-up or fine needle aspiration is required. PE: GEN: sitting on edge of bed w/ emesis basin - yellowish bile (?broth) LUNGS: CTAB HEART: mild tachycardia - 100 ABD: soft, non-tender NEURO/PSYCH: A & O 3 A/P: N/v - ongoing, EGD unrevealing Anemia - h/o LISA on PO iron at home GERD, occasional dysphagia S/p cholecystectomy Anxiety/depression H/o hypothyroidism on replacement - TSH undetectable here -- Will d/w Dr. Bailey. Justicifation of Admission Dx: Justifications for Admission: Justification of Admission Dx: Yes ARTHUR SWIFT July 10, 2020 10:03
[2020-07-10 11:00] VITALS: BP 122/50
[2020-07-10 12:02] LABS: ALBUMIN 3.3 g/dL (3.4-5.0); ALBUMIN/GLOBULIN RATIO 0.9 (1.0-1.7); CALCIUM 9.7 mg/dL (8.5-10.1); CREATININE 1.5 mg/dL (0.6-1.0); GFR 35.3; POTASSIUM 4.4 mmol/L (3.5-5.1); TOTAL BILIRUBIN 1.1 mg/dL (0.2-1.0); TOTAL PROTEIN 6.8 g/dL (6.4-8.2)
--- NOTE | 2020-07-10 13:15 | PDOC ---
[facility] [facility] PROGRESS NOTE Date of Service DOS: DATE: 07/10/20 TIME: 13:12 Chief Complaint Chief Complaint A/P: Intractable abdominal pain - likely related to as of yet undiagnosed PUD. Will keep NPO. IV fentanyl has been effective, will continue. IV protonix as well Nausea and vomiting - likely related to above. No history of gastroparesis. Will keep NPO except for sips with meds. IV zofran MEGHAN - appears to be vasomotor nephropathy likely from poor PO intake recently. With BUN/Cr ratio I am concerned for possible PUD with upper GI bleed. GI consulted. IV fluids ordered Hypomagnesemia - likely due to HCTZ therapy with PPI administration. Will hold off on this Hypothyroidism - on 88mcg levothyroxine. Actually hyperthyroid, will check TSH, T4, T3 consistent with severe hyperthyroidism, possible thyroid storm HTN - hold HCTZ. PRN hydralazine FEN - NPO PPX - IV protonix, SCDs FULL CODE Dispo - inpatient History of Present Illness History of Present Illness Ms Pedersen is a 60yo F w/ PMHx Constipation, GERD, Hypertension, hypothyroidism, and morbid obesity is to the ED today accompanied by her via private vehicle with complaint of intractable abdominal progressive over the last month. She has been seen outpatient and has EGD scheduled on 07/14/2020. She been taking Protonix daily with no improvement in her symptoms and this is actually progressed now she has daily nausea and has not been able to hold down food for the last 3 days attempted to eat pears and cereal 3 days ago and 2 days ago respectively. Was unable to eat any food today had significant dry heaving with no significant vomitus this morning which prompted her to come to the ED. Pain is mainly epigastric but does radiate into the rest of her abdomen. She has not noticed any foods that worsen it does avoid spicy foods. She initially had her EGD scheduled on 06/27/2020 but it was delayed due to a fever for 24 hours after her second COVID-19 vaccine. No chest pain or shortness of breath. No history of cardiac issues. She has been compliant with her medications though she does take her levothyroxine at the same time as another a.m. medications. She has had 2 colonoscopies in her lifetime most recently was in 2019 which had no abnormalities noted. CT abdomen pelvis with no acute abdominal or pelvic finding some calcified uterine fibroids thoracic and lumbar spinal stenosis multiple levels. Labs with WBC 6.6, Hb 11.1, platelets 177, NA 141, K4.4, BUN 45, CR 1.1, glucose 119, calcium 9.8, magnesium 1.5, albumin 3.3, lipase 109, LFTs otherwise within normal laboratory limits urinalysis with hyaline casts trace leukocyte esterase negative for nitrites and blood. Admitted for further treatment. 07/09: Pain a little better. To EGD with mild gastritis and mild esophagitis today. CR up to 1.2, mag 2.7, TSH undetectable. Pain not really improved. T3 in the 300s T4 elevated. Starting IV steroids and propranolol today likely thyroid storm. Vitals/I&O Vitals/I&O: Vital Signs Date Time Temp Pulse Resp B/P (MAP) Pulse Ox O2 Delivery O2 Flow Rate FiO2 07/10/20 11:00 98.3 99 17 122/50 (74) 96 Room Air 98.3 07/09/20 12:53 4 I & O 07/09/20 07/09/20 07/10/20 15:00 23:00 07:00 Intake Total 300 ml Output Total 0 ml Balance 300 ml 0 ml Physical Exam General: Alert, Oriented X3, Cooperative, moderate distress Abdomen: Normal bowel sounds, Soft, No hepatosplenomegaly, No masses, Other (Epigastric tenderness) Extremities: No clubbing, No cyanosis, No edema, Normal pulses, No tenderness/swelling Skin: No rashes, No breakdown, No significant lesion Labs Labs: Laboratory Tests Test 07/10/20 11:15 Sodium Level 140 mmol/L (136-145) Potassium Level 4.4 mmol/L (3.5-5.1) Chloride Level 103 mmol/L (98-107) Carbon Dioxide Level 27 mmol/L (21-32) Anion Gap 10 (6-14) Blood Urea Nitrogen 60 mg/dL (7-20) Creatinine 1.5 mg/dL (0.6-1.0) Estimated GFR (Cockcroft-Gault) 35.3 BUN/Creatinine Ratio 40 (6-20) Glucose Level 103 mg/dL (70-99) Calcium Level 9.7 mg/dL (8.5-10.1) Total Bilirubin 1.1 mg/dL (0.2-1.0) Aspartate Amino Transf (AST/SGOT) 74 U/L (15-37) Alanine Aminotransferase (ALT/SGPT) 114 U/L (14-59) Alkaline Phosphatase 70 U/L (46-116) Total Protein 6.8 g/dL (6.4-8.2) Albumin 3.3 g/dL (3.4-5.0) Albumin/Globulin Ratio 0.9 (1.0-1.7) Assessment and Plan Assessmemt and Plan Problems Medical Problems: (1) MEGHAN (acute kidney injury) Status: Acute Comment Review of Relevant I have reviewed the following items gabriele (where applicable) has been applied. Medications: Current Medications Medications (Trade) Dose Ordered Sig/Gary Route PRN Reason Start Time Stop Time Status Last Admin Dose Admin Pantoprazole Sodium (Protonix) 40 mg DAILYAC PO 07/10/20 07:30 07/10/20 06:16 Metoclopramide HCl (Reglan Vial) 10 mg PRN Q6HRS PRN IVP NAUSEA/VOMITING 07/09/20 16:00 07/10/20 08:49 Hydromorphone HCl (Dilaudid) 1 mg PRN Q4HRS PRN IVP PAIN 07/09/20 16:00 07/10/20 07:51 Fentanyl Citrate (Fentanyl 2ml Vial) 25 mcg 1X ONCE IVP 07/09/20 16:30 07/09/20 16:31 DC 07/09/20 16:08 Methylprednisolone Sodium Succinate (SOLU-Medrol 125MG VIAL) 125 mg 1X ONCE IV 07/10/20 09:00 07/10/20 09:01 DC 07/10/20 09:47 Propranolol HCl (Inderal La) 60 mg DAILY PO 07/10/20 09:00 07/10/20 09:48 Justifications for Admission Abdominal Pain Indications Is patient in severe pain?: Yes Justification for admission: Patient has severe pain that requires (parenteral analgesic-please state analgesics and route) at least every 4 hours necessitating inpatient level of care. Is NPO status required?: Yes Justification for admission: Patient may require to be NPO for greater 24hours making it medically necessary to manage patient as inpatient. Other Justification ROMULO CONTI MD July 10, 2020 13:15
[2020-07-10] MEDS: methylPREDNISolone SOD SUCC PF 40 MG/ML VIAL. IV SCH ×2 (14:19→22:19)
[2020-07-10] MEDS: IV RINGERS,LACTATED 1000ML 1,000 ML IV SCH (14:20)
[2020-07-10 15:00] VITALS: BP 128/54
[2020-07-10 19:20] VITALS: BP 129/55
[2020-07-10 23:12] VITALS: BP 139/48
[2020-07-11] MEDS: IV RINGERS,LACTATED 1000ML 1,000 ML IV SCH (03:02)
[2020-07-11 03:27] VITALS: BP 121/82
[2020-07-11] MEDS ORDERED: ACETAMINOPHEN 650 MG SUPP.RECT. PR PRN (05:00)
[2020-07-11] MEDS: methylPREDNISolone SOD SUCC PF 40 MG/ML VIAL. IV SCH ×3 (05:45→22:08)
[2020-07-11] MEDS: PANTOPRAZOLE 40 MG TABLET.DR. PO SCH (05:46)
[2020-07-11] MEDS: HYDROmorphone 2 MG/ML VIAL IVP PRN (05:50)
[2020-07-11] MEDS: ONDANSETRON PF 4 MG/2 ML VIAL. IV PRN (05:50)
[2020-07-11 07:00] VITALS: BP 145/57
[2020-07-11] MEDS: METOCLOPRAMIDE HCL 10 MG/2 ML VIAL. IVP PRN (07:33)
--- NOTE | 2020-07-11 07:44 | PDOC ---
[facility] [facility] PROGRESS NOTE Date of Service DOS: DATE: 07/11/20 TIME: 07:44 Chief Complaint Chief Complaint A/P: Intractable abdominal pain - likely related to as of yet undiagnosed PUD. Will keep NPO. IV fentanyl has been effective, will continue. IV protonix as well Nausea and vomiting - likely related to above. No history of gastroparesis. Will keep NPO except for sips with meds. IV zofran MEGHAN - appears to be vasomotor nephropathy likely from poor PO intake recently. With BUN/Cr ratio I am concerned for possible PUD with upper GI bleed. GI consulted. IV fluids ordered Hypomagnesemia - likely due to HCTZ therapy with PPI administration. Will hold off on this Hypothyroidism - on 88mcg levothyroxine. Actually hyperthyroid, will check TSH, T4, T3 consistent with severe hyperthyroidism, possible thyroid storm HTN - hold HCTZ. PRN hydralazine FEN - General diet PPX - IV protonix, SCDs FULL CODE Dispo - inpatient History of Present Illness History of Present Illness Ms Pedersen is a 60yo F w/ PMHx Constipation, GERD, Hypertension, hypothyroidism, and morbid obesity is to the ED today accompanied by her via private vehicle with complaint of intractable abdominal progressive over the last month. She has been seen outpatient and has EGD scheduled on 07/14/2020. She been taking Protonix daily with no improvement in her symptoms and this is actually progressed now she has daily nausea and has not been able to hold down food for the last 3 days attempted to eat pears and cereal 3 days ago and 2 days ago respectively. Was unable to eat any food today had significant dry heaving with no significant vomitus this morning which prompted her to come to the ED. Pain is mainly epigastric but does radiate into the rest of her abdomen. She has not noticed any foods that worsen it does avoid spicy foods. She initially had her EGD scheduled on 06/27/2020 but it was delayed due to a fever for 24 hours after her second COVID-19 vaccine. No chest pain or shortness of breath. No history of cardiac issues. She has been compliant with her medications though she does take her levothyroxine at the same time as another a.m. medications. She has had 2 colonoscopies in her lifetime most recently was in 2019 which had no abnormalities noted. CT abdomen pelvis with no acute abdominal or pelvic finding some calcified uterine fibroids thoracic and lumbar spinal stenosis multiple levels. Labs with WBC 6.6, Hb 11.1, platelets 177, NA 141, K4.4, BUN 45, CR 1.1, glucose 119, calcium 9.8, magnesium 1.5, albumin 3.3, lipase 109, LFTs otherwise within normal laboratory limits urinalysis with hyaline casts trace leukocyte esterase negative for nitrites and blood. Admitted for further treatment. 07/09: Pain a little better. To EGD with mild gastritis and mild esophagitis today. CR up to 1.2, mag 2.7, TSH undetectable. 07/10: Pain not really improved. T3 in the 300s T4 elevated. Starting IV steroids and propranolol today likely thyroid storm. Pain not improved. Vomited once this morning. Had not a bowel movement. Urine output dropped. Creatinine up to 1.5. CT head Vitals/I&O Vitals/I&O: Vital Signs Date Time Temp Pulse Resp B/P (MAP) Pulse Ox O2 Delivery O2 Flow Rate FiO2 07/11/20 06:20 20 94 Room Air 07/11/20 03:27 97.7 87 121/82 (95) 97.7 I & O 07/10/20 07/10/20 07/11/20 15:00 23:00 07:00 Intake Total 180 ml 680 ml 480 ml Balance 180 ml 680 ml 480 ml Physical Exam General: Alert, Oriented X3, Cooperative, moderate distress Abdomen: Normal bowel sounds, Soft, No hepatosplenomegaly, No masses, Other (Epigastric tenderness) Extremities: No clubbing, No cyanosis, No edema, Normal pulses, No tenderness/swelling Skin: No rashes, No breakdown, No significant lesion Labs Labs: Laboratory Tests Test 07/10/20 11:15 Sodium Level 140 mmol/L (136-145) Potassium Level 4.4 mmol/L (3.5-5.1) Chloride Level 103 mmol/L (98-107) Carbon Dioxide Level 27 mmol/L (21-32) Anion Gap 10 (6-14) Blood Urea Nitrogen 60 mg/dL (7-20) Creatinine 1.5 mg/dL (0.6-1.0) Estimated GFR (Cockcroft-Gault) 35.3 BUN/Creatinine Ratio 40 (6-20) Glucose Level 103 mg/dL (70-99) Calcium Level 9.7 mg/dL (8.5-10.1) Total Bilirubin 1.1 mg/dL (0.2-1.0) Aspartate Amino Transf (AST/SGOT) 74 U/L (15-37) Alanine Aminotransferase (ALT/SGPT) 114 U/L (14-59) Alkaline Phosphatase 70 U/L (46-116) Total Protein 6.8 g/dL (6.4-8.2) Albumin 3.3 g/dL (3.4-5.0) Albumin/Globulin Ratio 0.9 (1.0-1.7) Assessment and Plan Assessmemt and Plan Problems Medical Problems: (1) MEGHAN (acute kidney injury) Status: Acute Comment Review of Relevant I have reviewed the following items gabriele (where applicable) has been applied. Medications: Current Medications Medications (Trade) Dose Ordered Sig/Gary Route PRN Reason Start Time Stop Time Status Last Admin Dose Admin Methylprednisolone Sodium Succinate (SOLU-Medrol 125MG VIAL) 125 mg 1X ONCE IV 07/10/20 09:00 07/10/20 09:01 DC 07/10/20 09:47 Propranolol HCl (Inderal La) 60 mg DAILY PO 07/10/20 09:00 07/10/20 09:48 Methylprednisolone Sodium Succinate (SOLU-Medrol 40MG VIAL) 40 mg Q8HRS IV 07/10/20 14:00 07/11/20 05:45 Ringer's Solution 1,000 ml @ 75 mls/hr [id number] IV 07/10/20 13:30 07/12/20 05:29 07/11/20 03:02 Justifications for Admission Abdominal Pain Indications Is patient in severe pain?: Yes Justification for admission: Patient has severe pain that requires (parenteral analgesic-please state analgesics and route) at least every 4 hours necessitating inpatient level of care. Is NPO status required?: Yes Justification for admission: Patient may require to be NPO for greater 24hours making it medically necessary to manage patient as inpatient. Other Justification ROMULO CONTI MD July 11, 2020 07:44
[2020-07-11] MEDS: PROPRANOLOL ER 60 MG CAP.SA.24H. PO SCH (09:31)
--- NOTE | 2020-07-11 09:41 | NUR ---
SW following. Discussed with RN, pt from home with , room air, clear liquid diet, COVID-19 negative. GI following. Pt still vomiting. RN advised no SW needs at this time. SW will continue to follow.
[2020-07-11] MEDS: SUCRALFATE 1 GM TABLET. PO SCH (10:00)
--- NOTE | 2020-07-11 10:40 | PDOC ---
Date of Service: DATE: 07/11/20 TIME: 10:34 Subjective: Subjective: Nausea overnight, vomited this morning. Asks for something more than liquids. Hard to swallow Carafate. Swelling in legs. Symptoms worse in mornings? Hasn't stooled for a few days but also hasn't eaten, taking pain meds. Objective: Objective: D/w nurse - unable to have thyroid scan - must wait 6 weeks after getting contrast, 3 weeks off Synthroid. Getting IV Dilaudid. Vital Signs: Vital Signs Date Time Temp Pulse Resp B/P (MAP) Pulse Ox O2 Delivery O2 Flow Rate FiO2 07/11/20 09:31 90 145/57 07/11/20 08:00 Room Air 07/11/20 07:00 98.5 17 93 98.5 Labs: Laboratory Tests Test 07/10/20 11:15 Sodium Level 140 mmol/L Potassium Level 4.4 mmol/L Chloride Level 103 mmol/L Carbon Dioxide Level 27 mmol/L Anion Gap 10 Blood Urea Nitrogen 60 mg/dL Creatinine 1.5 mg/dL Estimated GFR (Cockcroft-Gault) 35.3 BUN/Creatinine Ratio 40 Glucose Level 103 mg/dL Calcium Level 9.7 mg/dL Total Bilirubin 1.1 mg/dL Aspartate Amino Transf (AST/SGOT) 74 U/L Alanine Aminotransferase (ALT/SGPT) 114 U/L Alkaline Phosphatase 70 U/L Total Protein 6.8 g/dL Albumin 3.3 g/dL Albumin/Globulin Ratio 0.9 PE: GEN: NAD LUNGS: CTAB HEART: RRR ABD: NABS, S/ND/NT NEURO/PSYCH: A & O 3 A/P: N/v - ongoing, EGD unrevealing Hyperthyroidism - h/o hypothyroidism on replacement prior to admission Anxiety GERD, occasional dysphagia Anemia - h/o LISA on iron replacement prior to admission MEGHAN, mildly eleveated LFTs -- Can attempt advancing diet - she requests scrambled eggs, milk, and sherbet. Try Carafate susp. If vomiting persists, would change to IV PPI. Dilaudid probably not helping n/v. Try dicyclomine. Monitor LFTs - no obvious hepatic abnormality on CT (noted biliary dilatation s/p divine). Will d/w Dr. Bailey - ?head imaging ?cardiac workup Miralax, etc. for constipation PRN. Justicifation of Admission Dx: Justifications for Admission: Justification of Admission Dx: Yes ARTHUR SWIFT July 11, 2020 10:40
[2020-07-11 11:00] VITALS: BP 138/85
[2020-07-11] MEDS ORDERED: fentaNYL PF VIAL 100 MCG/2 ML VIAL IVP PRN (14:00)
[2020-07-11] MEDS ORDERED: IV NORMAL SALINE 1000ML BAG 1,000 ML IV ONE (14:15)
[2020-07-11 15:00] VITALS: BP 139/62
--- NOTE | 2020-07-11 15:13 | RAD ---
Exam performed: CT scan of the head without contrast. Date of Service: 07/11/2020. Comparison: None available. Clinical History: Nausea and vomiting. Technique: Helical acquisitions are obtained from the foramen magnum to the vertex without intravenou s administration of contrast. Findings: The ventricles are midline without evidence of dilatation. Normal aguilar-white differentiation is maint ained. There is no extra axial fluid collection, intraparenchymal hemorrhage or mass lesion. The vi sualized portions of the orbits, paranasal sinuses and the mastoid air cells appear clear. The rylan rium is intact. Impression: 1. No acute intracranial process detected. PQRS Compliance Statement: One or more of the following individualized dose reduction techniques were utilized for this examinat ion: 1. Automated exposure control 2. Adjustment of the mA and/or kV according to patient size 3. Use of iterative reconstruction technique Electronically signed by: Josee Ferreira MD (07/11/2020 3:11 PM) [id number]
[2020-07-11] MEDS ORDERED: DICYCLOMINE HCL 10 MG CAPSULE PO PRN (16:00)
[2020-07-11] MEDS ORDERED: POLYETHYLENE GLYCOL 3350 17 GM PACKET. PO PRN (16:00)
[2020-07-11] MEDS ORDERED: BISACODYL 5 MG TABLET.DR. PO PRN (16:00)
[2020-07-11 19:00] VITALS: BP 134/71
--- NOTE | 2020-07-11 19:08 | NUR ---
Pt states she was walking back from the bathroom and the iv tubing was stuck under the wheels of the iv pole. She bent down to get the tubing out and lost her balance. She grabbed the bedrail and fell on her bottom. Denied hitting her head or any injury. Updated Dr. Alvarenga and Alejandrina nursing sup.
[2020-07-11 19:56] LABS: ALBUMIN 3.4 g/dL (3.4-5.0); ALBUMIN/GLOBULIN RATIO 1.1 (1.0-1.7); CALCIUM 8.6 mg/dL (8.5-10.1); CREATININE 1.7 mg/dL (0.6-1.0); GFR 30.6; POTASSIUM 4.8 mmol/L (3.5-5.1); TOTAL BILIRUBIN 0.4 mg/dL (0.2-1.0); TOTAL PROTEIN 6.6 g/dL (6.4-8.2)
[2020-07-11] MEDS: SUCRALFATE 1 GM/10 ML ORAL.SUSP. PEG SCH (20:46)
[2020-07-11 23:00] VITALS: BP 138/52
--- NOTE | 2020-07-12 02:12 | PATHOLOGY ---
[facility] Accession Number: [id number] . 01 Material submitted: . PART A: duodenum - DUODENAL BIOPSY R/O CELIAC PART B: ANTRUM - ANTRAL BIOPSY R/O H PYLORI PART C: esophagus - DISTAL ESOPHAGUS BIOPSY. Modifiers: distal . 01 Clinical history: . ABDOMINAL PAIN EGD . 02 Diagnosis: A. "Duodenal BX R/O celiac", biopsy: - Small bowel/duodenal mucosa with mild reactive changes; no evidence of celiac sprue. . B. "Antral BX R/O H. pylori", biopsy: - Gastric antral-type mucosa with mild reactive changes and mild chronic inflammation. - Negative H. pylori immunohistochemical stain (block B1); control reacted appropriately. . C. "Distal esophagus BX", biopsy: - Esophageal squamous mucosa and gastric cardiac-type mucosa with mild reactive changes and mild chronic inflammation; no intestinal metaplasia or dysplasia seen. (CLW:idalmis; 07/11/2020) S 07/11/2020 1501 Local . 02 Electronically signed: . Marga Khan MD, Pathologist NPI- [id number] . 01 Gross description: . A. The specimen is received in formalin, labeled "Lydia Large, duodenal biopsy". Received are two segments of pale ge tissue measuring 0.4 cm each in maximum dimensions. The specimen is submitted entirely in cassette A1. . B. The specimen is received in formalin, labeled "Lydia Large, antral biopsy". Received are two segments of pale ge tissue measuring 0.2 and 0.3 cm in maximum dimensions. The specimen is submitted entirely in cassette B1. . C. The specimen is received in formalin, labeled "Lydia Large, distal esophagus biopsy". Received are two segments of pale ge tissue measuring 0.4 and 0.5 cm in maximum dimensions. The specimen is submitted entirely in cassette C1. (CAA; 07/10/2020) QAC/QAC 07/11/2020 1453 Local . 02 Pathologist provided ICD-10: K29.50, K20.90 . 02 CPT . 161976, 168945, [id number], [id number] Specimen Comment: A courtesy copy of this report has been sent to [phone], [phone] Specimen Comment: [id number], Specimen Comment: Report sent to ,DR BACA / DR CONTI Specimen Comment: A duplicate report has been generated due to demographic updates. Performed at: 01 [facility] [address] [place] [address] [address], [place] [id number] MD Basil Lynn MD Phone: [phone] Performed at: [address] [facility] [address] [id number] MD Marga Khan MD Phone: [phone]
[2020-07-12 03:00] VITALS: BP 150/57
[2020-07-12] MEDS: PANTOPRAZOLE 40 MG TABLET.DR. PO SCH (06:22)
[2020-07-12] MEDS: methylPREDNISolone SOD SUCC PF 40 MG/ML VIAL. IV SCH ×3 (06:22→21:56)
[2020-07-12 07:01] VITALS: BP 173/80
[2020-07-12] MEDS: SUCRALFATE 1 GM/10 ML ORAL.SUSP. PEG SCH (09:00)
--- NOTE | 2020-07-12 09:22 | PDOC ---
[facility] PROGRESS NOTE Date of Service DOS: DATE: 07/12/20 TIME: 09:19 Chief Complaint Chief Complaint A/P: Intractable abdominal pain - likely related to hyperthyroidism and some mild gastritis Nausea and vomiting - likely related to above. No history of gastroparesis. improved with thyroid suppression MEGHAN - appears to be vasomotor nephropathy likely from poor PO intake recently. Hypomagnesemia - likely due to HCTZ therapy with PPI administration. Will hold off on this Hyperthyroidism - started on steroids, propranolol given symptoms. Will initiate methimazole therapy when LFTs normalize Hypothyroidism - on 88mcg levothyroxine. Actually hyperthyroid HTN - hold HCTZ. PRN hydralazine. On propranolol for hyperthyroidism FEN - General diet PPX - IV protonix, SCDs FULL CODE Dispo - inpatient History of Present Illness History of Present Illness Ms Pedersen is a 60yo F w/ PMHx Constipation, GERD, Hypertension, hypothyroidism, and morbid obesity is to the ED today accompanied by her via private vehicle with complaint of intractable abdominal progressive over the last month. She has been seen outpatient and has EGD scheduled on 07/14/2020. She been taking Protonix daily with no improvement in her symptoms and this is actually progressed now she has daily nausea and has not been able to hold down food for the last 3 days attempted to eat pears and cereal 3 days ago and 2 days ago respectively. Was unable to eat any food today had significant dry heaving with no significant vomitus this morning which prompted her to come to the ED. Pain is mainly epigastric but does radiate into the rest of her abdomen. She has not noticed any foods that worsen it does avoid spicy foods. She initially had her EGD scheduled on 06/27/2020 but it was delayed due to a fever for 24 hours after her second COVID-19 vaccine. No chest pain or shortness of breath. No history of cardiac issues. She has been compliant with her medications though she does take her levothyroxine at the same time as another a.m. medications. She has had 2 colonoscopies in her lifetime most recently was in 2019 which had no abnormalities noted. CT abdomen pelvis with no acute abdominal or pelvic finding some calcified uterine fibroids thoracic and lumbar spinal stenosis multiple levels. Labs with WBC 6.6, Hb 11.1, platelets 177, NA 141, K4.4, BUN 45, CR 1.1, glucose 119, calcium 9.8, magnesium 1.5, albumin 3.3, lipase 109, LFTs otherwise within normal laboratory limits urinalysis with hyaline casts trace leukocyte esterase negative for nitrites and blood. Admitted for further treatment. 07/09: Pain a little better. To EGD with mild gastritis and mild esophagitis today. CR up to 1.2, mag 2.7, TSH undetectable. 07/10: Pain not really improved. T3 in the 300s T4 elevated. Starting IV steroids and propranolol today likely thyroid storm. 07/11: Pain not improved. Vomited once this morning. Had not a bowel movement. Urine output dropped. Creatinine up to 1.5. CT head negative Pain improved. No further vomiting still has some nausea. Still passing gas. Good urine output. Labs pending. Discussed methimazole versus radioactive iodine versus surgery she would like to move forward with methimazole treatment and have a discharge and outpatient follow-up with endocrinology Vitals/I&O Vitals/I&O: Vital Signs Date Time Temp Pulse Resp B/P (MAP) Pulse Ox O2 Delivery O2 Flow Rate FiO2 07/12/20 07:01 97.8 83 18 173/80 (111) 94 Room Air 97.8 I & O 07/11/20 07/11/20 07/12/20 15:00 23:00 07:00 Intake Total 939.8 ml 450 ml Balance 939.8 ml 450 ml Physical Exam General: Alert, Oriented X3, Cooperative, moderate distress Abdomen: Normal bowel sounds, Soft, No hepatosplenomegaly, No masses, Other (Epigastric tenderness) Extremities: No clubbing, No cyanosis, No edema, Normal pulses, No tenderness/swelling Skin: No rashes, No breakdown, No significant lesion Labs Labs: Laboratory Tests Test 07/11/20 19:00 Sodium Level 135 mmol/L (136-145) Potassium Level 4.8 mmol/L (3.5-5.1) Chloride Level 100 mmol/L (98-107) Carbon Dioxide Level 24 mmol/L (21-32) Anion Gap 11 (6-14) Blood Urea Nitrogen 78 mg/dL (7-20) Creatinine 1.7 mg/dL (0.6-1.0) Estimated GFR (Cockcroft-Gault) 30.6 BUN/Creatinine Ratio 46 (6-20) Glucose Level 187 mg/dL (70-99) Calcium Level 8.6 mg/dL (8.5-10.1) Total Bilirubin 0.4 mg/dL (0.2-1.0) Aspartate Amino Transf (AST/SGOT) 33 U/L (15-37) Alanine Aminotransferase (ALT/SGPT) 93 U/L (14-59) Alkaline Phosphatase 65 U/L (46-116) Total Protein 6.6 g/dL (6.4-8.2) Albumin 3.4 g/dL (3.4-5.0) Albumin/Globulin Ratio 1.1 (1.0-1.7) Assessment and Plan Assessmemt and Plan Problems Medical Problems: (1) MEGHAN (acute kidney injury) Status: Acute Comment Review of Relevant I have reviewed the following items gabriele (where applicable) has been applied. Medications: Current Medications Medications (Trade) Dose Ordered Sig/Gary Route PRN Reason Start Time Stop Time Status Last Admin Dose Admin Fentanyl Citrate (Fentanyl 2ml Vial) 25 mcg PRN Q3HRS PRN IVP PAIN 07/11/20 14:00 07/11/20 15:41 Sodium Chloride 1,000 ml @ 125 mls/hr 1X ONCE IV 07/11/20 14:15 07/11/20 22:14 DC 07/11/20 14:54 Justifications for Admission Abdominal Pain Indications Is patient in severe pain?: Yes Justification for admission: Patient has severe pain that requires (parenteral analgesic-please state analgesics and route) at least every 4 hours necessitating inpatient level of care. Is NPO status required?: Yes Justification for admission: Patient may require to be NPO for greater 24hours making it medically necessary to manage patient as inpatient. Other Justification ROMULO CONTI MD July 12, 2020 09:22
[2020-07-12] MEDS: PROPRANOLOL ER 60 MG CAP.SA.24H. PO SCH (09:30)
[2020-07-12 10:36] VITALS: BP 187/78
[2020-07-12 11:16] LABS: ALBUMIN 3.7 g/dL (3.4-5.0); ALBUMIN/GLOBULIN RATIO 1.3 (1.0-1.7); CALCIUM 8.7 mg/dL (8.5-10.1); CREATININE 1.6 mg/dL (0.6-1.0); GFR 32.8; POTASSIUM 4.9 mmol/L (3.5-5.1); TOTAL BILIRUBIN 0.4 mg/dL (0.2-1.0); TOTAL PROTEIN 6.6 g/dL (6.4-8.2)
[2020-07-12 14:18] VITALS: BP 154/52
[2020-07-12] MEDS ORDERED: ACETAMINOPHEN 325 MG TABLET. PO PRN (17:45)
[2020-07-12 19:00] VITALS: BP 174/57
[2020-07-12] MEDS: SUCRALFATE 1 GM/10 ML ORAL.SUSP. PO SCH (21:56)
[2020-07-12 23:00] VITALS: BP 145/57
[2020-07-13 03:00] VITALS: BP 145/42
[2020-07-13] MEDS: methylPREDNISolone SOD SUCC PF 40 MG/ML VIAL. IV SCH ×3 (05:58→21:29)
[2020-07-13] MEDS: PANTOPRAZOLE 40 MG TABLET.DR. PO SCH (06:33)
[2020-07-13 07:07] VITALS: BP 172/61
[2020-07-13 08:58] LABS: ALBUMIN 3.6 g/dL (3.4-5.0); ALBUMIN/GLOBULIN RATIO 1.2 (1.0-1.7); CALCIUM 8.8 mg/dL (8.5-10.1); CREATININE 1.4 mg/dL (0.6-1.0); GFR 38.2; POTASSIUM 5.2 mmol/L (3.5-5.1); TOTAL BILIRUBIN 0.5 mg/dL (0.2-1.0); TOTAL PROTEIN 6.7 g/dL (6.4-8.2)
[2020-07-13] MEDS: PROPRANOLOL ER 60 MG CAP.SA.24H. PO SCH (09:38)
[2020-07-13] MEDS: SUCRALFATE 1 GM/10 ML ORAL.SUSP. PO SCH ×2 (09:39→21:28)
[2020-07-13 10:57] VITALS: BP 180/71
[2020-07-13 14:10] VITALS: BP 165/56
--- NOTE | 2020-07-13 16:48 | PDOC ---
[facility] PROGRESS NOTE Date of Service DOS: DATE: 07/13/20 TIME: 16:40 Chief Complaint Chief Complaint A/P: Intractable abdominal pain - likely related to hyperthyroidism and some mild gastritis Nausea and vomiting - likely related to above. No history of gastroparesis. improved with thyroid suppression MEGHAN - appears to be vasomotor nephropathy likely from poor PO intake recently. Hypomagnesemia - likely due to HCTZ therapy with PPI administration. Will hold off on this Hyperthyroidism - started on steroids, propranolol given symptoms. Will initiate methimazole therapy and follow up thyroid stimulating antibodies Hypothyroidism - on 88mcg levothyroxine. Actually hyperthyroid HTN - hold HCTZ. PRN hydralazine. On propranolol for hyperthyroidism FEN - General diet PPX - IV protonix, SCDs FULL CODE Dispo - inpatient Follow up [facility] Endocrinology [address] [facility] [address] [place] [address] [facility] Endocrinology [phone] [facility] [address] [facility] [address] [place] [address] [facility] [address] [facility] [address] [place] [address] History of Present Illness History of Present Illness Ms Pedersen is a 60yo F w/ PMHx Constipation, GERD, Hypertension, hypothyroidism, and morbid obesity is to the ED today accompanied by her via private vehicle with complaint of intractable abdominal progressive over the last month. She has been seen outpatient and has EGD scheduled on 07/14/2020. She been taking Protonix daily with no improvement in her symptoms and this is actually progressed now she has daily nausea and has not been able to hold down food for the last 3 days attempted to eat pears and cereal 3 days ago and 2 days ago respectively. Was unable to eat any food today had significant dry heaving with no significant vomitus this morning which prompted her to come to the ED. Pain is mainly epigastric but does radiate into the rest of her abdomen. She has not noticed any foods that worsen it does avoid spicy foods. She initially had her EGD scheduled on 06/27/2020 but it was delayed due to a fever for 24 hours after her second COVID-19 vaccine. No chest pain or shortness of breath. No history of cardiac issues. She has been compliant with her medications though she does take her levothyroxine at the same time as another a.m. medications. She has had 2 colonoscopies in her lifetime most recently was in 2019 which had no abnormalities noted. CT abdomen pelvis with no acute abdominal or pelvic finding some calcified uterine fibroids thoracic and lumbar spinal stenosis multiple levels. Labs with WBC 6.6, Hb 11.1, platelets 177, NA 141, K4.4, BUN 45, CR 1.1, glucose 119, calcium 9.8, magnesium 1.5, albumin 3.3, lipase 109, LFTs otherwise within normal laboratory limits urinalysis with hyaline casts trace leukocyte esterase negative for nitrites and blood. Admitted for further treatment. 07/09: Pain a little better. To EGD with mild gastritis and mild esophagitis today. CR up to 1.2, mag 2.7, TSH undetectable. 07/10: Pain not really improved. T3 in the 300s T4 elevated. Starting IV steroi ds and propranolol today likely thyroid storm. 07/11: Pain not improved. Vomited once this morning. Had not a bowel movement. Urine output dropped. Creatinine up to 1.5. CT head negative 07/12: Pain improved. No further vomiting still has some nausea. Still passing gas. Good urine output. Labs pending. Discussed methimazole versus radioactive iodine versus surgery she would like to move forward with methimazole treatment and have a discharge and outpatient follow-up with endocrinology Pain improved. having BMs. No vomiting. Labs stable. TSI elevated, will start methimazole Vitals/I&O Vitals/I&O: Vital Signs Date Time Temp Pulse Resp B/P (MAP) Pulse Ox O2 Delivery O2 Flow Rate FiO2 07/13/20 14:10 98.3 78 18 165/56 (92) 97 Room Air 98.3 I & O 07/12/20 07/12/20 07/13/20 15:00 23:00 07:00 Intake Total 300 ml 300 ml Balance 300 ml 300 ml Physical Exam General: Alert, Oriented X3, Cooperative, moderate distress Abdomen: Normal bowel sounds, Soft, No hepatosplenomegaly, No masses, Other (Epigastric tenderness) Extremities: No clubbing, No cyanosis, No edema, Normal pulses, No tenderness/swelling Skin: No rashes, No breakdown, No significant lesion Labs Labs: Laboratory Tests Test 07/13/20 07:15 Sodium Level 137 mmol/L (136-145) Potassium Level 5.2 mmol/L (3.5-5.1) Chloride Level 101 mmol/L (98-107) Carbon Dioxide Level 24 mmol/L (21-32) Anion Gap 12 (6-14) Blood Urea Nitrogen 68 mg/dL (7-20) Creatinine 1.4 mg/dL (0.6-1.0) Estimated GFR (Cockcroft-Gault) 38.2 BUN/Creatinine Ratio 49 (6-20) Glucose Level 126 mg/dL (70-99) Calcium Level 8.8 mg/dL (8.5-10.1) Total Bilirubin 0.5 mg/dL (0.2-1.0) Aspartate Amino Transf (AST/SGOT) 22 U/L (15-37) Alanine Aminotransferase (ALT/SGPT) 67 U/L (14-59) Alkaline Phosphatase 58 U/L (46-116) Total Protein 6.7 g/dL (6.4-8.2) Albumin 3.6 g/dL (3.4-5.0) Albumin/Globulin Ratio 1.2 (1.0-1.7) Assessment and Plan Assessmemt and Plan Problems Medical Problems: (1) MEGHAN (acute kidney injury) Status: Acute Comment Review of Relevant I have reviewed the following items gabriele (where applicable) has been applied. Medications: Current Medications Medications (Trade) Dose Ordered Sig/Gary Route PRN Reason Start Time Stop Time Status Last Admin Dose Admin Sucralfate (Carafate Oral Susp) 1 gm BID@1000,2200 PO 07/12/20 22:00 07/13/20 09:39 Acetaminophen (Tylenol) 650 mg PRN Q6HRS PRN PO MILD PAIN / TEMP > 100.3'F 07/12/20 17:45 07/12/20 17:50 Justifications for Admission Abdominal Pain Indications Is patient in severe pain?: Yes Justification for admission: Patient has severe pain that requires (parenteral analgesic-please state analgesics and route) at least every 4 hours necessitating inpatient level of care. Is NPO status required?: Yes Justification for admission: Patient may require to be NPO for greater 24hours making it medically necessary to manage patient as inpatient. Other Justification ROMULO CONTI MD July 13, 2020 16:48
[2020-07-13] MEDS: methIMAzole 10 MG TABLET PO SCH ×2 (18:05→21:29)
[2020-07-13 19:00] VITALS: BP 164/69
[2020-07-13 23:00] VITALS: BP 163/77
[2020-07-14 03:00] VITALS: BP 180/59
[2020-07-14] MEDS: methylPREDNISolone SOD SUCC PF 40 MG/ML VIAL. IV SCH (06:33)
[2020-07-14] MEDS: methIMAzole 10 MG TABLET PO SCH (06:33)
[2020-07-14] MEDS: PANTOPRAZOLE 40 MG TABLET.DR. PO SCH (06:34)
[2020-07-14 07:00] VITALS: BP 193/86
[2020-07-14] MEDS: PROPRANOLOL ER 60 MG CAP.SA.24H. PO SCH (09:44)
--- NOTE | 2020-07-14 09:57 | NUR ---
SW following. Discussed with RN, pt from home with , room air, GI soft, COVID-19 negative. RN advised no SW needs, anticipates possible discharge home today. SW will continue to follow.
[2020-07-14] MEDS: SUCRALFATE 1 GM/10 ML ORAL.SUSP. PO SCH (10:00)
[2020-07-14 10:22] LABS: CALCIUM 8.5 mg/dL (8.5-10.1); CREATININE 1.4 mg/dL (0.6-1.0); GFR 38.2; MAGNESIUM 1.8 mg/dL (1.8-2.4); POTASSIUM 4.6 mmol/L (3.5-5.1)
[2020-07-14 11:00] VITALS: BP 180/74
[2020-07-14] MEDS ORDERED: PROP60CA36 PO (11:20)
[2020-07-14] MEDS ORDERED: METH-364 PO (11:20)
--- NOTE | 2020-07-14 11:25 | DISCH ---
DISCHARGE INSTRUCTIONS Condition on Discharge Condition on Discharge: Stable Activity After Discharge Activity Instructions for Disc: Activity as tolerated Follow-Up Follow up with: PCP within 2 weeks of discharge Follow Up With: Endocrinology follow-up CORNELIO Treatment/Equipment after DC Comment: Follow up JVAY FOSS MD July 14, 2020 11:25
--- NOTE | 2020-07-14 11:53 | PDOC ---
Date of Service: DATE: 07/14/20 TIME: 11:51 Subjective: Subjective: No GI complaints, anxious to go home. Objective: Vital Signs: Vital Signs Date Time Temp Pulse Resp B/P (MAP) Pulse Ox O2 Delivery O2 Flow Rate FiO2 07/14/20 11:00 98.4 67 18 180/74 (109) 97 Room Air 98.4 Labs: Diagnosis: A. "Duodenal BX R/O celiac", biopsy: - Small bowel/duodenal mucosa with mild reactive changes; no evidence of celiac sprue. B. "Antral BX R/O H. pylori", biopsy: - Gastric antral-type mucosa with mild reactive changes and mild chronic inflammation. - Negative H. pylori immunohistochemical stain (block B1); control reacted appropriately. C. "Distal esophagus BX", biopsy: - Esophageal squamous mucosa and gastric cardiac-type mucosa with mild reactive changes and mild chronic inflammation; no intestinal metaplasia or dysplasia seen. PE: GEN: NAD LUNGS: CTAB HEART: RRR ABD: NABS, S/ND/NT NEURO/PSYCH: A & O 3 A/P: N/v - resolved ?Grave's -- Dc per primary, follow-up w/ endocrinology. Continue PPI +/- Carafate for GERD. EGD biopsies unremarkable. Justicifation of Admission Dx: Justifications for Admission: Justification of Admission Dx: Yes ARTHUR SWIFT July 14, 2020 11:53
--- NOTE | 2020-07-14 13:10 | NUR ---
Discharge Note: HELENA WRIGHT Discharge instructions and discharge home medications reviewed with Patient and spouse and a copy given. All questions have been answered and understanding verbalized. The following instructions and handouts were given: info about discharge medications, activity, diet, follow up appointments, etc. Discontinued lines and drains: IV in left hand removed, catheter tip intact. Patient discharged to home with self care with , wheelchair used for mobility to discharge vehicle.
--- NOTE | 2020-07-16 18:12 | PDOC3 ---
[facility]-Discharge Summary Date of Admission: Date of Admission: July 08, 2020 Date of Discharge: Date of Discharge: July 14, 2020 Discharge Diagnosis: Discharge Diagnosis: Intractable abdominal pain - likely related to hyperthyroidism and some mild gastritis Nausea and vomiting - likely related to above. No history of gastroparesis. improved with thyroid suppression MEGHAN - appears to be vasomotor nephropathy likely from poor PO intake recently. Hypomagnesemia - likely due to HCTZ therapy with PPI administration. Will hold off on this Hyperthyroidism - started on steroids, propranolol given symptoms. Will initiate methimazole therapy and follow up thyroid stimulating antibodies Hypothyroidism - on 88mcg levothyroxine. Actually hyperthyroid HTN - hold HCTZ. PRN hydralazine. On propranolol for hyperthyroidism Consults: Consults: GI recs: Dc per primary, follow-up w/ endocrinology. Continue PPI +/- Carafate for GERD. EGD biopsies unremarkable. Hospital Course: Hospital Course: 60yo F w/ PMHx Constipation, GERD, Hypertension, hypothyroidism, and morbid obesity is to the ED today accompanied by her via private vehicle with complaint of intractable abdominal progressive over the last month. She has been seen outpatient and has EGD scheduled on 07/14/2020. She been taking Protonix daily with no improvement in her symptoms and this is actually progressed now she has daily nausea and has not been able to hold down food for the last 3 days attempted to eat pears and cereal 3 days ago and 2 days ago respectively. Was unable to eat any food today had significant dry heaving with no significant vomitus this morning which prompted her to come to the ED. Pain is mainly epigastric but does radiate into the rest of her abdomen. She has not noticed any foods that worsen it does avoid spicy foods. She initially had her EGD scheduled on 06/27/2020 but it was delayed due to a fever for 24 hours after her second COVID-19 vaccine. No chest pain or shortness of breath. No history of cardiac issues. She has been compliant with her medications though she does take her levothyroxine at the same time as another a.m. medications. She has had 2 colonoscopies in her lifetime most recently was in 2019 which had no abnormalities noted. CT abdomen pelvis with no acute abdominal or pelvic finding some calcified uterine fibroids thoracic and lumbar spinal stenosis multiple levels. Labs with WBC 6.6, Hb 11.1, platelets 177, NA 141, K4.4, BUN 45, CR 1.1, glucose 119, calcium 9.8, magnesium 1.5, albumin 3.3, lipase 109, LFTs otherwise within normal laboratory limits urinalysis with hyaline casts trace leukocyte esterase negative for nitrites and blood. Admitted for further treatment. 07/09: Pain a little better. To EGD with mild gastritis and mild esophagitis today. CR up to 1.2, mag 2.7, TSH undetectable. 07/10: Pain not really improved. T3 in the 300s T4 elevated. Starting IV steroids and propranolol today likely thyroid storm. 07/11: Pain not improved. Vomited once this morning. Had not a bowel movement. Urine output dropped. Creatinine up to 1.5. CT head negative 07/12: Pain improved. No further vomiting still has some nausea. Still passing gas. Good urine output. Labs pending. Discussed methimazole versus radioactive iodine versus surgery she would like to move forward with methimazole treatment and have a discharge and outpatient follow-up with endoc rinology Pain improved. having BMs. No vomiting. Labs stable. TSI elevated, will start methimazole By day of discharge, pt was clinically stable and ready for discharge. Rest of hospital course was uneventful Disposition: Disposition/Orders: D/C to Home Activity: Activity: Resume previous activity Diet: Diet: Cardiac Medications: Home Meds Active Scripts Propranolol Hcl (INDERAL LA) 60 Mg Cap.sa.24h, 60 MG PO DAILY for hyperthyroidism for 30 Days, #30 CAP.SR Prov:JAVY FOSS MD 07/14/20 Methimazole (METHIMAZOLE) 10 Mg Tablet, 10 MG PO Q8HRS for hyperthyroidism for 30 Days, #90 TAB Prov:JAVY FOSS MD 07/14/20 Reported Medications Zinc (ZINC) 50 Mg Tablet, 50 MG PO DAILY for med list , TAB 07/09/20 Ferrous Sulfate (IRON) 325 Mg Tablet, 1 TAB PO DAILY for med list for 30 Days, #30 TAB 0 Refills 07/09/20 [place]-3/Dha/Epa/Fish Oil (Fish Oil 1,200 mg Softgel) 1 Each Capsule.dr, 1 CAP PO DAILY for med list for 30 Days, #30 CAP 0 Refills 07/09/20 Multivitamin (MULTI VITAMIN DAILY) 1 Each Tablet, 1 TAB PO DAILY for med list for 30 Days, #30 TAB 0 Refills 07/09/20 Docusate Sodium (DOCUSATE SODIUM) 100 Mg Capsule, 1 CAP PO DAILY for constipation for 7 Days, #7 CAP 0 Refills 07/09/20 Cranberry Extract (Cranberry) 500 Mg Tablet, 4200 MG PO DAILY for med list, TAB 07/09/20 Benazepril Hcl (BENAZEPRIL HCL) 40 Mg Tablet, 1 TAB PO DAILY for med list , #30 TAB 5 Refills 07/09/20 Pantoprazole Sodium (PROTONIX ) 40 Mg Tablet.dr, 40 MG PO DAILYAC for GERD, TAB 07/09/20 Discontinued Reported Medications Hydrochlorothiazide (HYDROCHLOROTHIAZIDE TABLET) 12.5 Mg Tablet, 25 MG PO DAILY for DIURETIC, TAB 0 Refills 07/09/20 Levothyroxine Sodium (SYNTHROID) 88 Mcg Tablet, 1 TAB PO DAILY for hypothyroid, #30 TAB 5 Refills 07/09/20 Scheduled Benazepril Hcl (Benazepril Hcl), 1 TAB PO DAILY, (Reported) Cranberry Extract (Cranberry), 4,200 MG PO DAILY, (Reported) Docusate Sodium (Docusate Sodium), 1 CAP PO DAILY, (Reported) Ferrous Sulfate (Iron), 1 TAB PO DAILY, (Reported) Methimazole (Methimazole), 10 MG PO Q8HRS Multivitamin (Multi Vitamin Daily), 1 TAB PO DAILY, (Reported) [place]-3/Dha/Epa/Fish Oil (Fish Oil 1,200 mg Softgel), 1 CAP PO DAILY, (Reported) Pantoprazole Sodium (Protonix ), 40 MG PO DAILYAC, (Reported) Propranolol Hcl (Inderal La), 60 MG PO DAILY Zinc (Zinc), 50 MG PO DAILY, (Reported) Discontinued Medications Hydrochlorothiazide (Hydrochlorothiazide Tablet), 25 MG PO DAILY, (Reported) Levothyroxine Sodium (Synthroid), 1 TAB PO DAILY, (Reported) Total Time: Total Time: Total time spent was 35 minutes in preparing scripts, discharge planning with SW and RN, and preparing this discharge summary. Patient seen and examined on day of discharge. Justicifation of Admission Dx: Justifications for Admission: Justification of Admission Dx: Yes JAVY FOSS MD July 16, 2020 18:12
== END 2020-07-14 13:13 | disposition home or self-care (01) | DRG 643 ==
LOC: ER 12:03 → 4 NORTH 15:37
PROVIDERS: ADMIT Internal Medicine; ATTEND Internal Medicine
PROC: 0DB98ZX Excision of Duodenum, Via Natural or Artificial Opening Endoscopic, Diagnostic (ICD-10-PCS; principal; 2020-07-08)
PROC: 0DB68ZX Excision of Stomach, Via Natural or Artificial Opening Endoscopic, Diagnostic (ICD-10-PCS; 2020-07-08)
PROC: 0DB58ZX Excision of Esophagus, Via Natural or Artificial Opening Endoscopic, Diagnostic (ICD-10-PCS; 2020-07-08)
DX: E05.91 Thyrotoxicosis, unspecified with thyrotoxic crisis or storm (principal); N17.0 Acute kidney failure with tubular necrosis; E44.0 Moderate protein-calorie malnutrition; Z68.41 Body mass index [BMI] 40.0-44.9, adult; D25.9 Leiomyoma of uterus, unspecified; D64.9 Anemia, unspecified; E03.9 Hypothyroidism, unspecified; E04.1 Nontoxic single thyroid nodule; E83.42 Hypomagnesemia; F32.9 Major depressive disorder, single episode, unspecified; I10 Essential (primary) hypertension; F41.9 Anxiety disorder, unspecified; K21.00 Gastro-esophageal reflux disease with esophagitis, without bleeding; K29.70 Gastritis, unspecified, without bleeding; K59.00 Constipation, unspecified; K64.9 Unspecified hemorrhoids; K83.8 Other specified diseases of biliary tract; M48.061 Spinal stenosis, lumbar region without neurogenic claudication; T50.2X5A Adverse effect of carbonic-anhydrase inhibitors, benzothiadiazides and other diuretics, initial encounter; Z80.0 Family history of malignant neoplasm of digestive organs; Z82.49 Family history of ischemic heart disease and other diseases of the circulatory system; Z87.891 Personal history of nicotine dependence; Z90.49 Acquired absence of other specified parts of digestive tract; Z90.710 Acquired absence of both cervix and uterus; E66.01 Morbid (severe) obesity due to excess calories; M19.90 Unspecified osteoarthritis, unspecified site; Z20.822 Contact with and (suspected) exposure to COVID-19; Z88.2 Allergy status to sulfonamides; Z88.8 Allergy status to other drugs, medicaments and biological substances
CPT/HCPCS: 36415; 43239; 70450; 74177; 76536; 80048; 80053; 81001; 82607; 83540; 83550; 83690; 83735; 84439; 84443; 84445; 84480; 85025; 87086; 87426; 88305; 88342; 93005; 96361; 96365; 96375; C9113; J0780; J1170; J2405; J2704; J2765; J2920; J2930; J3010; J3475; J7030; J7042; J7120; U0003; U0005; 99285-25; G0378